=== PATIENT | female | born 1980 | race Caucasian/White ===

== ENCOUNTER → 2023-03-29 | Outpatient (CLI) | payer OTHER | LOC: M WHC 12:54 | PROVIDERS: ATTEND Family Medicine | DX: Z12.31 Encounter for screening mammogram for malignant neoplasm of breast (principal) ==

== ENCOUNTER 2025-09-17 14:58 | Outpatient (CLI) | payer OTHER ==
[~2025-09-17] VITALS: Ht 162.6 cm; Wt 111.4 kg
[~2025-09-17 14:58] MED LIST: ALBUTEROL SULFATE 2.5 MG/0.5 ML INH CONCENTRATE NEB SOLN INH PRN; EPINEPHrine INJ 1 MG/ML 1ML AMP IM PRN; diphenhydrAMINE 50 MG/ML VIAL IV PRN
[2025-09-17] MEDS: ACETAMINOPHEN 650 MG PO ONE (15:19)
[2025-09-17] MEDS: FERRIC CARBOXYMALTOSE 750 MG (VIAL MATE) IN 100ML NS IV ONE (15:19)
[2025-09-17 15:22] VITALS: BP 119/76; O2SAT 97
[2025-09-17 15:40] VITALS: BP 114/76; O2SAT 97
== END 2025-09-17 15:45 | disposition home or self-care (01) ==
LOC: M INFU 14:58
PROVIDERS: ATTEND Family Medicine
DX: D50.9 Iron deficiency anemia, unspecified (principal); Z98.84 Bariatric surgery status
CPT/HCPCS: 96365; J1439

== ENCOUNTER 2025-09-24 15:00 | Outpatient (CLI) | payer OTHER ==
[~2025-09-24] VITALS: Ht 162.6 cm; Wt 104.5 kg
[2025-09-24 15:30] VITALS: BP 124/77; O2SAT 100
[2025-09-24] MEDS ORDERED: ACETAMINOPHEN 650 MG PO ONE (15:30)
[2025-09-24] MEDS: FERRIC CARBOXYMALTOSE 750 MG (VIAL MATE) IN 100ML NS IV ONE (15:39)
[2025-09-24 16:15] VITALS: BP 108/78; O2SAT 99
== END 2025-09-24 16:15 | disposition home or self-care (01) ==
LOC: M INFU 15:00
PROVIDERS: ATTEND Family Medicine
DX: D50.9 Iron deficiency anemia, unspecified (principal)
CPT/HCPCS: 96365; J1439